=== PATIENT | female | born 1945 | race Caucasian/White ===

== ENCOUNTER 2018-02-10 17:03 | Emergency (ER) | payer MEDICARE, OTHER ==
[2018-02-10 17:31] VITALS: BP 136/77
--- NOTE | 2018-02-10 17:38 | UC ---
Complaint Female HPI - HPI Summary HPI Summary: Pt presents with c/o pelvic pressure and pain, urinary frequency and urgency X 2 weeks. Pt has hx of interstitial cystitis. - History Of Current Complaint Chief Complaint: UCGU Stated Complaint: URINARY Time Seen by Provider: 02/10/18 17:33 Hx Obtained From: Patient ?: No Onset/Duration: Sudden Onset, Lasting Days, Still Present, Worse Since - onset Timing: Intermittent Severity Initially: Mild Severity Currently: Mild Pain Intensity: 1 Character: Sharp, Dull Alleviating Factor(s): Nothing Associated Signs And Symptoms: Positive: Negative - Risk Factors Ectopic Risk Factor: Negative Ovarian Torsion Risk Factor: Negative - Allergies/Home Medications Allergies/Adverse Reactions: Allergies Allergy/AdvReac Type Severity Reaction Status Date / Time No Known Allergies Allergy Unverified 02/10/18 17:25 Home Medications: Home Medications Cholecalciferol TAB* [Vitamin D TAB*] 1,000 unit PO DAILY 02/10/18 [History Confirmed 02/10/18] Magnesium Oxide TAB* [MagOx 400 TAB*] 400 mg PO DAILY 02/10/18 [History Confirmed 02/10/18] Meloxicam(NF) [Mobic(NF)] 15 mg PO DAILY PRN 02/10/18 [History Confirmed ] [place]-3 Fatty Acids (Nf) [Fish Oil (NF)] 1,000 mg PO DAILY 02/10/18 [History Confirmed 02/10/18] Vitamin THERAPEUTIC TAB* [Theragran TAB*] 1 tab PO DAILY 02/10/18 [History Confirmed 02/10/18] PMH/Surg Hx/FS Hx/Imm Hx Previously Healthy: Yes - Surgical History Surgical History: Yes Surgery Procedure, Year, and Place: Right TKA, 2016, [place]; Left MELI, 2014, [place]; Appendectomy, ~1963, [place]; T&A, ~1950, [place] - Family History Known Family History: Positive: Cardiac Disease - Social History Occupation: Retired Lives: With Family Alcohol Use: None Substance Use Type: None Smoking Status (MU): Never Smoked Tobacco Have You Smoked in the Last Year: No Review of Systems Constitutional: Negative Skin: Negative Eyes: Negative ENT: Negative Respiratory: Negative Cardiovascular: Negative Gastrointestinal: Abdominal Pain Genitourinary: Frequency, Urgency Motor: Negative Neurovascular: Negative Musculoskeletal: Negative Neurological: Negative Psychological: Negative Is Patient Immunocompromised?: No All Other Systems Reviewed And Are Negative: Yes Physical Exam Triage Information Reviewed: Yes Appearance: Well-Appearing Vital Signs: Initial Vital Signs Temp 97.4 F 02/10/18 17:22 Pulse 66 02/10/18 17:22 Resp 14 02/10/18 17:22 BP 136/77 02/10/18 17:22 Pulse Ox 100 02/10/18 17:22 Vital Signs Reviewed: Yes Eye Exam: Normal ENT Exam: Normal Dental Exam: Normal Neck exam: Normal Respiratory Exam: Normal Cardiovascular Exam: Normal Abdominal Exam: Normal Abdomen Description: Positive: Nontender Musculoskeletal Exam: Normal Neurological Exam: Normal Psychological Exam: Normal Skin Exam: Normal Complaint Female Dx - Differential Dx/Diagnosis Differential Diagnosis/HQI/PQRI: Urinary Tract Infection Provider Diagnoses: pelvic pain. hematuria. urinary frequency and urgency Discharge - Sign-Out/Discharge Documenting (check all that apply): Patient Departure All imaging exams completed and their final reports reviewed: No Studies - Discharge Plan Condition: Stable Disposition: HOME Prescriptions: Cephalexin CAP* [Keflex 500 CAP*] 500 mg PO Q8H #21 cap Phenazopyridine 200 mg (NF) [Pyridium 200 MG tab *] 200 mg PO TID #3 tab Patient Education Materials: Hematuria (ED) Referrals: Henrietta Pollack PA [Primary Care Provider] - As Soon As Possible Karlo Mariano MD [Medical Doctor] - If Needed - Billing Disposition and Condition Condition: STABLE Disposition: Home
== END 2018-02-10 18:04 | disposition home or self-care (01) ==
LOC: UCCORT 17:03
DX: R10.2 Pelvic and perineal pain (principal); R31.9 Hematuria, unspecified; R35.0 Frequency of micturition
CPT/HCPCS: 81003; 99202; G0463

== ENCOUNTER 2018-10-25 17:12 | Emergency (ER) | payer MEDICARE ==
--- OUTSIDE RECORDS SUMMARY | 2018-10-25 17:26 | XMS REPORT | Continuity of Care Document ---
:1945 External Reference #:[id number] Author Name Nataly Landa Care Team Providers Name Role Phone Henrietta Pollack RPA Primary Care Physician Unavailable Payers Date Identification Numbers Payment Provider Subscriber Policy Number: [id number] [employer] Delroy Millan PayID: [id number] [address] [place] [address] Problems Active Problems Provider Date Osteopenia Henrietta Pollack, PA Onset: 06/15/2018 Vitamin D deficiency Henrietta Pollack, PA Onset: 06/20/2018 Degenerative joint disease involving multiple Henrietta Pollack, PA Onset: 09/2018 joints Thrombocytopenic disorder Henrietta Pollack, PA Onset: 06/15/2018 Polyp of colon Henrietta Pollack, PA Onset: 08/23/2018 Note: 2016 (high grade/CIS) Chronic interstitial cystitis Henrietta Pollack, PA Onset: 10/05/2018 Family History Date Family Member(s) Observation Comments Father at 101 yrs old Mother Parkinson's Disease First Brother Diabetes Type I Social History Type Date Description Comments Sex Unknown Lives With Daughter Lives With Granddaughter 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 ETOH Use Denies alcohol use Tobacco Use Start: Unknown Patient has never smoked Smoking Status Reviewed: 10/05/18 Patient has never smoked Exercise Exercises regularly Exercise bike, swimming Type/Frequency Allergies, Adverse Reactions, Alerts Description No Known Drug Allergies Medications Active Medications SIG Qnty Indications Ordering Provider Date Meclizine HCL 1-2 tabs by mouth 30tabs H81.10 Palmer 10/05/2018 12.5mg every 6 hours as MD Rina Tablets needed dizziness Meloxicam 1 by mouth every Unknown 15mg day prn Tablets Magnesium 1 by mouth every Unknown 300mg day Capsules Vitamin D-1000 take one Unknown Maximum Strength capsule/tablet daily by mouth 1000Unit Tablets Multi Vitamin Daily 1 by mouth every Unknown day Tablets Fish Oil 1 tab by mouth Unknown 1000mg every day - OTC Capsules History Medications Order Addended/Additional g47.oo Palmer Flynn MD 09/16/2018 - Diagnosis 10/05/2018 Medications Administered in Office Medication SIG Qnty Indications Ordering Provider Date Depomedrol 80MG [facility] M.D. 08/25/2012 Injection Vital Signs Date Vital Result Comment 10/05/2018 2:13pm Weight 162.31 lb Heart Rate 71 /min BP Systolic 98 mmHg BP Diastolic 60 mmHg Body Temperature 98.8 F O2 % BldC Oximetry 98 % 06/15/2018 10:30am Height 65.5 inches 5'5.50" Weight 161.00 lb Heart Rate 74 /min BP Systolic 122 mmHg BP Diastolic 68 mmHg Body Temperature 97.9 F O2 % BldC Oximetry 96 % BMI (Body Mass Index) 26.4 kg/m2 Results Test Date Facility Test Result H/L Range Note Laboratory test 10/05/2018 [facility] Cytology <pending> [address]IVE Non-Information [place] [address] [phone] Ua Routine 10/05/2018 [facility] Ua Specific 1.010 [place] Ua PH 6.5 Ua Color Yellow Ua Appera Normal Ua WBC - Ua Protein - Ua Glucose - Ua Ketones - Ua Bilirubin - Ua Urobilinogen - Ua Nitrite - Ua Occult Blood ++++ Surgical Pathology 01/20/2013 [facility] S RUN DATE: 01/23/ < SEE [address] NOTE> [place] [address] [phone] 1 RUN DATE: 01/23/13 [facility] LAB LIVE PAGE 1 RUN TIME: [address] [place], [place] [address] Specimen Inquiry Name: DELROY MILLAN : [address]: Bay Quesada MD Acct: [id number] Unit: [id number] AGE: 67 Location: [facility] Re01/20/13 SEX: F Status: REG [facility] SPEC: [id number] MALIK: 01/20/13- [facility] DR: Bay Quesada MD REQ: [id number] RECD: 01/20/13 STATUS: SOUT _ ORDERED: LEVEL III FINAL DIAGNOSIS Knee, right, arthroscopic shavings: Benign synovium and cartilage with reactive changes. PRE-OPERATIVE DIAGNOSIS Right knee cartilage tear GROSS DESCRIPTION The specimen is received in formalin labeled Delroy EspinozaJoyce PennJasbir, Right Knee Shavings and Loose Body, and consists of a 3.0 x 2.0 x 0.5 cm. aggregate of yellow and white tissue fragments. Carton Stapler sections, one cassette. Signed (signature on file) Delia Glasgow MD 1830 END OF REPORT * ML=Testing performed at Main Lab DEPARTMENT OF PATHOLOGY, [address] [place] [address] Se Gonzalez M.D. Director [facility] Permit #[id number] Procedures Date Code Description Status 08/19/2018 42483050 Colonoscopy Completed 08/08/2018 [id number] Mammogram Completed 01/20/2013 55079 Arthroscopy,Knee,Meniscectomy Media & Lateral Completed 01/20/2013 33698 Arthroscopy,Knee,Meniscectomy Media & Lateral Completed 08/25/2012 57650 Inject/Drain Joint/Bursa Major W/O US Completed Encounters Type Date Location Provider Dx Diagnosis Office Visit 06/15/2018 [facility] Henrietta Pollack, Z00.00 Encntr for general 10:00a PA adult medical exam w/o abnormal findings Z12.31 Encntr screen mammogram for malignant neoplasm of breast F43.21 Adjustment disorder with depressed mood K63.5 Polyp of colon M85.80 Oth disrd of bone density and structure, unspecified site N30.11 Interstitial cystitis (chronic) with hematuria Office Visit 09/22/2012 8:30a [facility], 836.2 Dislocation Knee Services Of M.D. Tear Of Cartilage C.M.A. Or Meniscus Current Other Office Visit 08/25/2012 11:00a [facility] [place], 836.2 Dislocation Knee Services Of M.D. Tear Of Cartilage C.M.A. Or Meniscus Current Other 836.0 Dislocation Knee Tear Of Medial Cartilage Or Meniscus Curren 715.96 Osteoarthrosis Unspec Genlzd Or Localized Lower Leg Plan of Treatment 10/05/2018 - Henrietta Pollack, PAH81.10 Benign paroxysmal vertigo, unspecified earNew Medication:Meclizine HCL 12.5 mg - 1-2 tabs by mouth every 6 hours as needed dizzinessNew Labs:Comp Metabolic Panel, Ordered: 10/05/18Erythrocyte Sed Rate, Ordered: 10/05/18C Reactive Protein, Ordered: 10/05/18Vitamin D Total 25( Oh), Ordered: 10/05/18R31.29 Other microscopic hematuriaNew Labs:CBC Auto Diff, Ordered: 10/05/18Erythrocyte Sed Rate, Ordered: 06/26/19C Reactive Protein, Ordered: 10/05/18
[2018-10-25] MEDS ORDERED: Lidocaine 2% EPI 1:200000 MPF* 10 ML VIAL INJ ONE (18:33)
[2018-10-25] MEDS ORDERED: oxyCODONE/Acetamin 5/325 MG* TAB PO ONE (18:33)
--- NOTE | 2018-10-25 18:36 | ED ---
Upper Extremity Pain - HPI Summary HPI Summary: 73 year old F [facility] accompanied by daughter with a chief complaint of left wrist pain after slipping on wet rocks and falling on to her left hand and left elbow in 4 inches of water while walking in [place] today. The patient rates the pain 8/10 in severity. Symptoms aggravated by movement. Symptoms alleviated by nothing. Patient reports obvious left wrist deformity and abrasion on left elbow. Patient denies left shoulder pain. Patient is right-handed. - History of Current Complaint Chief Complaint: EDExtremityUpper Stated Complaint: POSS LT BROKEN ARM PER PT Time Seen by Provider: 10/25/18 18:28 Hx Obtained From: Patient Mechanism Of Injury: Other - slipping on wet rocks and falling on to her left hand and left elbow in 4 inches of water while walking in [place] Onset/Duration: Started Hours Ago, Still Present Timing: Constant Severity Currently: Severe - 8/10 Pain Location: Wrist - left Aggravating Factor(s): Movement Alleviating Factor(s): Nothing Associated Signs & Symptoms: Positive: Negative - left shoulder pain, Other - obvious left wrist deformity and abrasion on left elbow - Allergies/Home Medications Allergies/Adverse Reactions: Allergies Allergy/AdvReac Type Severity Reaction Status Date / Time No Known Allergies Allergy Verified 10/25/18 18:58 PMH/Surg Hx/FS Hx/Imm Hx Endocrine/Hematology History: Denies: Hx Diabetes, Hx Thyroid Disease Cardiovascular History: Reports: Other Cardiovascular Problems/Disorders - HX OF "EXTRA BEAT"- PATIENT STATES HAS DISAPPEARED NOW Denies: Hx Hypercholesterolemia - borderline, Hx Hypertension, Hx Pacemaker/ ICD, Hx Peripheral Vascular Disease GI History: Reports: Hx Gastroesophageal Reflux Disease - ON MEDICATION FOR, Hx Irritable Bowel - HX OF Musculoskeletal History: Reports: Hx Arthritis - KNEE Denies: Hx Rheumatoid Arthritis, Hx Osteoporosis, Hx Scoliosis Sensory History: Reports: Hx Cataracts, Hx Contacts or Glasses - READING Denies: Hx Glaucoma, Hx Hearing Aid Opthamlomology History: Reports: Hx Cataracts, Hx Contacts or Glasses - READING Denies: Hx Glaucoma Neurological History: Denies: Hx Headaches, Other Neuro Impairments/Disorders Psychiatric History: Denies: Hx Anxiety, Hx Depression, Hx Panic Disorder - Surgical History Surgery Procedure, Year, and Place: Right TKA, 2016, [place]; Left MELI, 2014, [place]; Appendectomy, ~1963, [place]; T&A, ~1950, [place] Hx Anesthesia Reactions: No Infectious Disease History: No Infectious Disease History: Denies: Traveled Outside the [place] in Last 30 Days - Family History Known Family History: Positive: Cardiac Disease - Social History Alcohol Use: None Hx Substance Use: No Substance Use Type: Reports: None Hx Tobacco Use: No Smoking Status (MU): Never Smoked Tobacco Have You Smoked in the Last Year: No Review of Systems Musculoskeletal: Negative - left shoulder pain Positive: Other - left wrist pain, left wrist deformity Positive: Other - abraison on left elbow All Other Systems Reviewed And Are Negative: Yes Physical Exam - Summary Physical Exam Summary: Constitutional: Well-developed, Well-nourished, Alert. (-) Distressed Skin: Warm, Dry HENT: Normocephalic; Atraumatic Eyes: Conjunctiva normal Neck: Musculoskeletal ROM normal neck. (-) JVD, (-) Stridor Cardio: Rhythm regular, rate normal, Heart sounds normal; Intact distal pulses; Radial pulses are 2+ and symmetric. (-) Murmur Pulmonary/Chest wall: Effort normal. (-) Respiratory distress, (-) Wheezes, (-) Rales Abd: Soft, (-) tenderness, (-) Distension, (-) Guarding, (-) Rebound Musculoskeletal: Abrasion to the left elbow with/ no tenderness, FROM, she has obvious deformity of mid forearm, she has 2+ radial pulse and intact sensation in left hand Hand PE Motor: Opposition of thumb and first finger intact Able to cross first and second finger Able to extend thumb Able to flex and extend wrist Able to spread fingers Sensory: Sensation intact in 1st, 2nd, and 5th digits Pulse: 2+ radial pulse intact. Brisk cap refill. Lymph: (-) Cervical adenopathy Neuro: Alert, Oriented x3 Psych: Mood and affect Normal Triage Information Reviewed: Yes Vital Signs On Initial Exam: Initial Vitals Temp Pulse Resp BP Pulse Ox 99.0 F 63 18 142/77 100 10/25/18 17:15 10/25/18 17:15 10/25/18 17:15 10/25/18 17:15 10/25/18 17:15 Vital Signs Reviewed: Yes Diagnostics - Vital Signs Vital Signs Temp Pulse Resp BP Pulse Ox 10/25/18 17:15 99.0 F 63 18 142/77 100 - Laboratory Lab Statement: Any lab studies that have been ordered have been reviewed, and results considered in the medical decision making process. - Radiology Left wrist, left h Radiology Interpretation Completed By: ED Physician Summary of Radiographic Findings: Displaced mid shaft radius fracture. Pending official report. Left wrist x-ray Radiology Interpretation Completed By: ED Physician Summary of Radiographic Findings: Displaced mid shaft radius fracture. Pending official report. Left extremity x-rays Radiology Interpretation Completed By: ED Physician Summary of Radiographic Findings: Displaced mid shaft radius fracture. Pending official report. Left upper extremity x-rays Radiology Interpretation Completed By: ED Physician Summary of Radiographic Findings: Displaced mid shaft radius fracture. Pending official report. - Additional Comments Diagnostic Additional Comments: Initial left forearm x-ray at 18:10 shows angulated radius fracture and distal ulnar styloid fracture X-ray at 20:29 shows partial reduction of radius fracture Repeat x-ray at 21:01 shows interval worsening of the angulation X-ray at 21:46 shows persistent displacement of distal radius fracture Pending official x-ray reports Re-Evaluation - Re-Evaluation First Eval Re-Evaluation Time: 19:50 Comment: Will do a reduction. Patient is getting medications Second Eval Re-Evaluation Time: 21:50 Comment: review of final x-ray shows mild improvement and displacement fracture. patient neurovascularly intact after splint placement. Plan for follow up with orthopedics Course/Dx - Course Course Of Treatment: 73 y/o F who presents after a ground-level fall with left wrist pain and deformity. - Neurovascular intact with obvious deformity of the left wrist will check x-rays of the wrist and forearm hand and elbow. - Initial x-ray suggests a displaced radius fracture as well as ulnar styloid fracture. plan for reduction and splinting follow-up with orthopedics as needed. Will provide pain control here with morphine. - Initial reduction and better alignment of the fracture however on splinting fracture appears to be more displaced. Patient was then resplinted with mild improvement in angulation. Patient remained neurovascular intact discussed with patient that she needs to follow-up with orthopedics on likely need re-reduction of her wrist , patient is in agreement - Diagnoses Provider Diagnoses: Radius fracture Discharge - Sign-Out/Discharge Documenting (check all that apply): Patient Departure - Discharge Patient Received Moderate/Deep Sedation with Procedure: No - Discharge Plan Condition: Stable Disposition: HOME Patient Education Materials: Arm Fracture in Adults (ED), Splint Care (ED) Referrals: Chavo French MD [Medical Doctor] - 1 Day Additional Instructions: Follow up with Dr. French, orthopedics, in 1-2 days Return to the Emergency Department for severe pain, numbness and/or tingling of your left hand, or if you are concerned. - Billing Disposition and Condition Condition: STABLE Disposition: Home - Attestation Statements Document Initiated by Scribe: Yes Documenting Scribe: Lala Hagen Provider For Whom Jose is Documenting (Include Credential): Aj Kam MD Scribe Attestation: ILala, scribed for Aj Kam MD on 10/25/18 at 9849. Scribe Documentation Reviewed: Yes Provider Attestation: The documentation as recorded by the scribLala campuzano accurately reflects the service I personally performed and the decisions made by me, Aj Kam MD Status of Scribe Document: Viewed
[2018-10-25] MEDS ORDERED: Lidocaine 2% w/ EPI 1:200,000* 20 ML VIAL INJ ONE (19:00)
[2018-10-25] MEDS ORDERED: Morphine 4 MG/ML VIAL (1 ml) 4 MG/ML VIAL IV ONE ×2 (19:20→20:13)
[2018-10-25 22:02] VITALS: BP 119/68
== END 2018-10-25 22:01 | disposition home or self-care (01) ==
LOC: ED 17:12
DX: S52.502A Unspecified fracture of the lower end of left radius, initial encounter for closed fracture (principal); S52.602A Unspecified fracture of lower end of left ulna, initial encounter for closed fracture; W01.0XXA Fall on same level from slipping, tripping and stumbling without subsequent striking against object, initial encounter; Y92.89 Other specified places as the place of occurrence of the external cause; K21.9 Gastro-esophageal reflux disease without esophagitis; Z79.899 Other long term (current) drug therapy
CPT/HCPCS: 96372; 96374; 96376; 99282; A9270-GY; J2270

== ENCOUNTER → 2018-11-02 09:38 | Day surgery (SDC) | payer MEDICARE ==
[~2018-11-02 09:38] MED LIST: Acetaminophen TAB* 325 MG ONE; Acetaminophen TAB* 325 MG PO PRN; Buffered Lidocaine 1% SYRIN* 1 ML/SYRINGE INTRADERM ONE; Bupivacaine 0.5% W/EPI SDV* 30 ML VIAL ONE; Dexamethasone IV* 4 MG/ML 1 ML (4 MG) ONE; DiMENhydriNATE IV* 50 MG/ML VIAL IV PUSH PRN; DiMENhydriNATE IV* 50 MG/ML VIAL ONE; Famotidine IV* 10 MG/ML 2 ML (20 mg) IV ONE; Famotidine IV* 10 MG/ML 2 ML (20 mg) ONE; HYDROmorphone INJ1* 1 MG/ML SYRINGE IV PRN; Ketorolac INJ* 30 MG/ML 1 ML VIAL ONE; Lactated Ringers 1000 ML Bag* 1,000 ML IV SCH; Lidocaine 2% PF * 5 ML VIAL ONE; Midazolam* 1 MG/ML 5 ML VIAL (5 MG) ONE; Naloxone* 0.4 MG/ML 1 ML VIAL IV PRN; Ondansetron INJ* 2 MG/ML VIAL ONE; Propofol* 10 MG/ML 20 ML BTL ONE; ceFAZolin 2 GM in NS PREMIX(*) 2 GM/100 ML BAG IVPB ONE; fentaNYL* 50 MCG/ML 2 ML VIAL (100 MCG VIAL) ONE; oxyCODONE TAB* 5 MG TAB ONE; oxyCODONE TAB* 5 MG TAB PO PRN
[2018-11-02 11:25] LABS: ABS Eosinophils 0.1 10^3/ul (0-0.6); ABS Lymphocytes 1.5 10^3/ul (1.0-4.8); ABS Monocytes 0.5 10^3/ul (0-0.8); ABS Neutrophils 3.6 10^3/ul (1.5-7.7); Eosinophil % 2.1 %; Hematocrit 39 % (35-47); Hemoglobin 13.3 g/dL (12.0-16.0); Lymphocyte % 25.4 %; Mean Corpuscular HGB Conc 34 g/dL (31-36); Mean Corpuscular Hemoglobin 33 pg (27-31); Mean Corpuscular Volume 94 fL (80-97); Mean Platelet Volume 7.6 fL (7.4-10.4); Nucleated Red Blood Cells % 0.1; Platelet Count 192 10^3/uL (150-450); Red Blood Count 4.09 10^6 /uL (3.70-4.87); Red Cell Distribution Width 13 % (10-15); White Blood Count 5.7 10^3/uL (3.5-10.8)
[2018-11-02 17:20] VITALS: BP 115/67
--- NOTE | 2018-11-02 23:57 | OP ---
DATE OF SURGERY: 11/02/18 [facility] DATE OF : 43 SURGEON: Dr. Chavo French. LOG HAUL CHAIN FEEDER: TO Hagan. A physician commercial real estate assistant was required for the length of the procedure for assistance with the patient positioning, retraction , instrumentation, and closure. ANESTHESIOLOGIST: Dr. Elo Fountain. ANESTHESIA: General anesthesia, local anesthesia using 10 cc of Marcaine 0.5% with epinephrine. PRE-OP DIAGNOSES: 1. Left distal radius shaft fracture with significant displacement, triangulation, and angulation. 2. Left distal radius fracture, intraarticular, with some impaction and step- off. 3. Left distal ulnar styloid fracture, minimally displaced. POST-OP DIAGNOSES: 1. Left distal radius shaft fracture with significant displacement, triangulation, and angulation. 2. Left distal radius fracture, intraarticular, with some impaction and step- off. 3. Left distal ulnar styloid fracture, minimally displaced. OPERATIVE PROCEDURE: 1. Open reduction and internal fixation, left radial shaft fracture. 2. Open reduction and internal fixation, left distal radius fracture, intraarticular, 3 or more pieces. ANTIBIOTICS: 2 g Ancef IV. IV FLUIDS: 1000 cc crystalloid. TOURNIQUET TIME: 107 minutes at 250 mmHg at left upper arm. MZIU-JB-ORBI TIME: 104 minutes. SPECIMEN: None. IMPLANTS: Synthes LCP usha-meta volar distal radius plate. This plate contains locking and nonlocking 3.5 mm screws and locking 2.4 mm screws. COMPLICATIONS: None. ESTIMATED BLOOD LOSS: Minimal. INDICATIONS FOR PROCEDURE: The patient is a 73-year-old woman, right-hand dominant, who injured her left wrist and forearm on 10/25/18, eight days prior to surgery. The patient tripped and fell in a stream. She presented to emergency room and 2 days later on 10/27/18, she presented to my clinic. The patient was significantly uncomfortable but neurovascularly intact without evidence of compartment syndrome. She had a sugar-tong splint in place. It had been placed in the emergency department. I did not have CT available but x-rays demonstrated a transverse fracture of the distal radius shaft with only a small butterfly fragment but otherwise noncomminuted with almost 100% dorsal translation along with some volar apex angulation. There is also clearly some subchondral step-off, intraarticular in the distal radius. There is also ulnar styloid process fracture that showed displacement on early ER films but later after reductions in the emergency room by emergency room staff, in my clinic, x-rays showed a nondisplaced ulnar styloid process fracture. In clinic, I spoke to the patient about her x-rays and various fractures that I visualized. I spoke to her about getting earliest available surgery date and that her outcome would not be significantly worse, waiting 8 days postinjury for surgery. I spoke to her about how a principal problem was the radius shaft fracture. It was not altogether clear on x-ray imaging whether the impacted segment of subchondral bone was volar or dorsal. I spoke about that being a predisposition for osteoarthritis, although likely not requiring anatomic fixation, given that it appeared to be 2 to 3 mm displaced at worst and the patient's age of 73 years. I spoke about how the ulnar styloid process fracture was nondisplaced. I planned on assessing the DRUJ for stability intraoperatively. We discussed risks and potential complications of surgery, including bleeding, infection, nerve or blood vessel injury, wrist pain, stiffness, osteoarthritis, need for hardware removal, need for immobilization postoperative. The patient opted for surgery. DESCRIPTION OF PROCEDURE: In preoperative holding, the patient signed a written consent. Operative extremity was marked in preoperative holding. The patient was taken back to the operating room and placed supine on the operating room table. Sedated and intubated. Hand table was applied. Tourniquet was placed about the left upper arm. Left upper extremity was prepped and draped. A surgical time-out was performed. I obtained some images with a mini C-arm prior to making skin incision. One of these to give me a feel for that distal subchondral bone whether it was volar or dorsal impaction. It was not altogether clear with these images. I applied the Esmarch and elevated the tourniquet. I made a standard volar approach to the distal radius with the exception of I made a longer incision, perhaps 10 cm rather than 7 cm. I incised skin. Dissected down to FCR. I released FCR sheath above, superficial and then deep to the FCR. Retracted FCR. Retracted FPL. I encountered pronator quadratus. I encountered a displaced radial shaft fracture. I irrigated out fracture site and debrided some soft tissue. Using a knife and then a Bovie cautery to minimize bleeding, I released pronator quadratus off the distal radius. This nicely exposed distal radius bone. Excellent visibility. Retractor was placed. I was able to reduce with my fingers the main transverse radial shaft fracture line. Difficult to place a clamp across this. I now spent a considerable period of time, perhaps 20 minutes, debating which plate to use. I considered either using a long version of the standard 2.4, 2.7 -mm volar locking plate that I typically use. Alternatively, Synthes has a volar distal radius plus distal shaft plate which has 3.5-mm screw holes for the shaft and then some 2.4-mm screw holes for the distal radius. I wanted adequate fixation with the shaft fracture. The smaller plate would only have had the opportunity for nonlocking smaller 2.4, 2.7-mm screws, therefore I opted for the larger plate that would allow me to get 3.5-mm screws as well as locking. The larger plate did not contour perfectly to bone, therefore I used plate benders to flatten it out distally. This plate does not take polyaxial screws distally, so I wanted to place it slightly more proximal than I typically would to make sure that the locking screws would have a safe trajectory through the plate. I reduced the bone manually. I placed a nonlocking 3.5-mm screw in the plate just distal to the fracture site. I obtained some mini C-arm images which showed adequate position. I then placed a nonlocking screw just proximal to the fracture bone. This was done after I adjusted the position proximal to distal of the plate. I obtained mini C-arm images which showed an anatomic reduction of the radial shaft fracture except for perhaps a couple degrees of volar apex angulation. I would later iron this out. The proximal screw holes were then filled with locking screws, 3.5 mm. I placed 2 locking screws proximal to the fracture line. I then placed a nonlocking screw distal to the fracture line, 3.5 mm to attempt to bring plate to bone maximally. With the plates very well anchored to bone with three screws proximal and two large screws distal to the fracture of the radial shaft, I next took a little bit more of a look at the subchondral fracture. I considered opening this to perform a direct reduction. I did not think the patient would overall benefit from a dorsal plate. It was not clear to me that this could be reduced from volarly, where the cortex was entirely intact. I could not appreciate by direct visualization volarly any step-offs within the wound. I manipulated the distal radius with traction and then with hyperflexion , attempting to dislodge any amount of impaction. Unclear if this improved reduction. I then put the proximal row of screws into my plate. I first started with a nonlocking 2.7-mm screw to bring plate maximally down to bone. Plate at this point might have been a millimeter or two off of bone, most distally, despite I having contoured the plate. I placed a nonlocking screw and then filled the distal row with locking screws, either 2.4 or 2.7 mm, replacing a nonlocking screw with a locking screw. I took a final x-ray views and liked my radial shaft reduction and hardware placement and screw lengths. Subchondral reduction was adequate, less than 3 mm of step-off. There was some element of impaction and some element of loss of dorsal brim. Irrigation. Closure of the pronator quadratus to the FCR subsheath covering the plate distally, nicely with [id number] stitches using Vicryl 2.0 suture. Closure of the subcutaneous layer with buried simple stitches using Vicryl 3-0 suture. Closure of the skin with a running stitches and nylon 4.0 suture. Marcaine 10 cc 0.5% with epinephrine injected into the subcutaneous tissue along the incision. Xeroform, 4x4s, sterile Webril, a volar plaster wrist splint overwrapped with an Delfino bandage. Tourniquet was dropped. The patient was awakened and extubated. Transferred to the PACU. The patient will follow up with me in 10 to 14 days. Percocet as needed for pain control. A volar splint to remain in place. The patient should move her fingers. Sling as needed. [id number]/[facility] #: [id number] MUNA
== END | disposition home or self-care (01) ==
LOC: OR 09:38
PROVIDERS: ATTEND Orthopaedic Surgery
DX: S52.392A Other fracture of shaft of radius, left arm, initial encounter for closed fracture (principal); S52.572A Other intraarticular fracture of lower end of left radius, initial encounter for closed fracture; S52.612A Displaced fracture of left ulna styloid process, initial encounter for closed fracture; W19.XXXA Unspecified fall, initial encounter; Y93.89 Activity, other specified; Y92.828 Other wilderness area as the place of occurrence of the external cause; M19.90 Unspecified osteoarthritis, unspecified site; D69.6 Thrombocytopenia, unspecified; M85.80 Other specified disorders of bone density and structure, unspecified site
CPT/HCPCS: 36415; 76000; 85025; A9270-GY; C1713; C1776; J0690; J1100; J1240; J1885; J2250; J2405; J2704; J3010